=== PATIENT | male | born 1930 | race African-American/Black ===

== ENCOUNTER 2019-04-01 17:18 | Inpatient (IN) | payer MEDICARE, MEDICAID ==
[~2019-04-01] VITALS: Ht 152.4 cm; Wt 47.2 kg
[2019-04-01] VITALS: BP 166/79
[~2019-04-01 17:18] MED LIST: AMLO5TAB4 PO; ASPI-1079 PO; DOCU-138 PO; FLUT1DIS IH; LEVO750T21 PO; LISI-604 PO; MONT10TA21 PO; NIFE20CA PO; OMEP20TA2 PO; P50 PO; TIOT18CA3 IH; albuter; albuterol mdi IH
[2019-04-01] MEDS ORDERED: ALBUTEROL (0.083%) 2.5MG/3ML NEB HHN STA (17:24)
[2019-04-01] MEDS ORDERED: METHYLPREDNISOLONE SOD SUCC 125 MG/2 ML VIAL IV STA (17:24)
[2019-04-01] MEDS ORDERED: MAGNESIUM 2 G PREMIX 50 ML IV STA (17:24)
[2019-04-01] MEDS ORDERED: IPRATROPIUM BROMIDE (0.02%) 0.5MG/2.5ML NEB HHN STA (17:24)
[2019-04-01 18:03] LABS: CHLORIDE 105 mEq/L (98-107)
[2019-04-01 18:04] LABS: BASOPHILS % 1.1 % (0.0-2.0); EOSINOPHILS % 4.6 % (0.0-5.0); HEMATOCRIT. 35.8 % (42.0-52.0); HEMOGLOBIN. 11.4 g/dL (14.0-18.0); LYMPHOCYTES % 39.2 % (20.0-50.0); MEAN CORPUSCULAR HEMOGLOBIN 26.7 pg (28.0-32.0); MEAN PLATELET VOLUME 8.1 fl (7.4-10.4); MONOCYTES % 10.1 % (2.0-8.0); PLATELET 299 x1000/uL (130-400); RED BLOOD CELL COUNT 4.26 mill/uL (4.7-6.1); RED CELL DISTRIBUTION WIDTH 16.1 % (11.6-14.6)
[2019-04-01 18:28] LABS: BG BASE EXCESS -1.1 mmol/L (-2.0-2.0); BG BILEVEL POS AIRWAY PRESSURE 15/5; BG CARBOXYHEMOGLOBIN 0.2 % (0.5-1.5); BG DEOXYHEMOGLOBIN 0.7 % (0.0-5.0); BG FRACTION INSPIRED OXYGEN 60; BG HCO3 ACT 24.2 mmol/L (22.0-26.0); BG METHEMOGLOBIN 0.1 % (0.0-1.5); BG OXYGEN SATURATION 99.3 % (92.0-98.5); BG PCO2 42.7 mmHg (35.0-45.0); BG PH 7.371 (7.350-7.450); BG PO2 213.5 mmHg (75.0-100.0); BG SAMPLE SITE RIGHT BRACHIAL; BG TOTAL HEMOGLOBIN 11.8 g/dL (12.0-18.0); BG VENT MODE MASK - BIPAP; BG VENT RATE 18 set
[2019-04-01 22:00] VITALS: BP 180/70
[2019-04-02] VITALS (11 sets, daily range): BP systolic 116–161; BP diastolic 55–101
[2019-04-02] MEDS ORDERED: LORAZEPAM 2MG/ML CPJ IV PRN
[2019-04-02] MEDS ORDERED: HYDROMORPHONE HCL/PF 2MG/ML CPJ IV PRN
[2019-04-02] MEDS ORDERED: ONDANSETRON HCL 4MG/2ML INJ IV PRN
[2019-04-02] MEDS ORDERED: NA PHOS,M-B/NA PHOS,DI-BA ENEMA 118ML PR PRN
[2019-04-02] MEDS ORDERED: DIPHENHYDRAMINE 50MG/ML VIAL IV PRN
[2019-04-02] MEDS ORDERED: ACETAMINOPHEN 325MG TABLET PO PRN
[2019-04-02] MEDS ORDERED: DOCUSATE SODIUM 100MG CAPSULE PO PRN
[2019-04-02] MEDS ORDERED: HYDROCODONE/ACETAMINOPHEN 10/325MG TABLET PO PRN
[2019-04-02] MEDS ORDERED: DEXTROSE 50% WATER 50ML SYRINGE IV PRN
[2019-04-02] MEDS ORDERED: IPRATROPIUM/ALBUTEROL 0.5-3(2.5)MG/3ML NEB INH PRN
[2019-04-02] MEDS ORDERED: DIAZ2TAB MT (02:15)
[2019-04-02] MEDS: SODIUM CHLORIDE 0.9% INJ 3ML FLUSH IVF SCH ×3 (06:48→21:21)
[2019-04-02 07:08] LABS: BASOPHILS % 0.3 % (0.0-2.0); HEMATOCRIT. 33.2 % (42.0-52.0); HEMOGLOBIN. 10.8 g/dL (14.0-18.0); LYMPHOCYTES % 12.6 % (20.0-50.0); MEAN CORPUSCULAR HEMOGLOBIN 26.7 pg (28.0-32.0); MEAN PLATELET VOLUME 8.1 fl (7.4-10.4); MONOCYTES % 2.5 % (2.0-8.0); NEUTROPHILS % 84.6 % (40.0-76.0); PLATELET 297 x1000/uL (130-400); RED BLOOD CELL COUNT 4.04 mill/uL (4.7-6.1); RED CELL DISTRIBUTION WIDTH 16.4 % (11.6-14.6)
[2019-04-02 07:26] LABS: CHLORIDE 106 mEq/L (98-107)
[2019-04-02 07:37] LABS: LDL CHOLESTEROL 40 mg/dL (5-100)
[2019-04-02 07:39] LABS: CREATINE KINASE 154 IU/L (39-308); CREATINE KINASE MB FRACTION 2.3 ng/mL (0.5-3.6); HDL CHOLESTEROL 102 mg/dL (40-59); T4 FREE 1.14 ng/dL (0.76-1.46)
[2019-04-02] MEDS: BLOOD SUGAR DIAGNOSTIC STRIP TEST SCH ×4 (07:54→21:20)
[2019-04-02] MEDS: INSULIN LISPRO 100 UNITS/ML SUBCUT SCH ×4 (08:00→21:00)
[2019-04-02] MEDS: ASPIRIN 81MG EC TABLET PO SCH (08:00)
[2019-04-02] MEDS ORDERED: PNEUMOCOCCAL 23-VAL P-SAC VAC 0.5 ML IM ONE (08:00)
[2019-04-02] MEDS ORDERED: ENOXAPARIN 40MG/0.4ML SYR SUBCUT SCH (09:00)
[2019-04-02] MEDS: MAGNESIUM/ALUMINUM HYDROXIDE/SIMETHICONE 30ML UDC PO PRN (12:28)
[2019-04-02 14:08] LABS: CLARITY URINE CLEAR (CLEAR); COLOR URINE YELLOW (YELLOW); KETONES URINE TRACE (NEGATIVE); LEUKOCYTE ESTERASE URINE NEGATIVE (NEGATIVE); NITRITE URINE NEGATIVE (NEGATIVE); OCCULT BLOOD URINE NEGATIVE (NEGATIVE); PH URINE 5.5 (4.5-8.0); PROTEIN URINE TRACE (NEGATIVE); SPECIFIC GRAVITY URINE 1.017 (1.005-1.030); UROBILINOGEN URINE 0.2 E.U./dL (0.2-1.0)
[2019-04-02] MEDS: CLONIDINE 0.1MG TABLET PO PRN (16:00)
[2019-04-02 17:14] LABS: CREATINE KINASE 195 IU/L (39-308)
[2019-04-02 17:15] LABS: CREATINE KINASE MB FRACTION 2.7 ng/mL (0.5-3.6)
[2019-04-02] MEDS: BUDESONIDE 0.5MG/2ML NEB HHN SCH (19:50)
[2019-04-02] MEDS: METHYLPREDNISOLONE SOD SUCC 40 MG/ML VIAL IV SCH (20:26)
[2019-04-02] MEDS: IPRATROPIUM/ALBUTEROL 0.5-3(2.5)MG/3ML NEB HHN PRN (21:23)
[2019-04-03] VITALS (11 sets, daily range): BP systolic 99–149; BP diastolic 54–85
[2019-04-03] MEDS: METHYLPREDNISOLONE SOD SUCC 40 MG/ML VIAL IV SCH ×3 (03:00→22:50)
[2019-04-03] MEDS: SODIUM CHLORIDE 0.9% INJ 3ML FLUSH IVF SCH ×3 (06:00→22:50)
[2019-04-03] MEDS: BLOOD SUGAR DIAGNOSTIC STRIP TEST SCH ×3 (07:30→17:21)
[2019-04-03] MEDS: INSULIN LISPRO 100 UNITS/ML SUBCUT SCH ×3 (07:53→17:22)
[2019-04-03] MEDS: ENOXAPARIN 30MG/0.3ML SYR SUBCUT SCH (08:45)
[2019-04-03] MEDS: ASPIRIN 81MG EC TABLET PO SCH (08:45)
[2019-04-03 09:31] LABS: BASOPHILS % 0.2 % (0.0-2.0); HEMATOCRIT. 33.5 % (42.0-52.0); HEMOGLOBIN. 10.7 g/dL (14.0-18.0); LYMPHOCYTES % 14.3 % (20.0-50.0); MEAN CORPUSCULAR HEMOGLOBIN 26.2 pg (28.0-32.0); MEAN PLATELET VOLUME 7.5 fl (7.4-10.4); MONOCYTES % 6.3 % (2.0-8.0); NEUTROPHILS % 79.2 % (40.0-76.0); PLATELET 293 x1000/uL (130-400); RED BLOOD CELL COUNT 4.09 mill/uL (4.7-6.1); RED CELL DISTRIBUTION WIDTH 16.2 % (11.6-14.6)
[2019-04-03] MEDS: IPRATROPIUM/ALBUTEROL 0.5-3(2.5)MG/3ML NEB HHN PRN ×2 (09:40→21:12)
[2019-04-03] MEDS: BUDESONIDE 0.5MG/2ML NEB HHN SCH ×2 (09:40→21:23)
[2019-04-03 09:52] LABS: CHLORIDE 106 mEq/L (98-107)
[2019-04-03] MEDS: CLONIDINE 0.1MG TABLET PO PRN (11:25)
[2019-04-03] MEDS: MAGNESIUM/ALUMINUM HYDROXIDE/SIMETHICONE 30ML UDC PO PRN (17:21)
[2019-04-03] MEDS ORDERED: LISI40TA4 MT (18:36)
[2019-04-03] MEDS ORDERED: NIFE90TA34 MT (18:36)
[2019-04-04] VITALS (11 sets, daily range): BP systolic 121–159; BP diastolic 52–83
[2019-04-04 06:09] LABS: HEMATOCRIT. 33.3 % (42.0-52.0); HEMOGLOBIN. 10.7 g/dL (14.0-18.0); LYMPHOCYTES % 9.6 % (20.0-50.0); MEAN CORPUSCULAR HEMOGLOBIN 26.6 pg (28.0-32.0); MEAN CORPUSCULAR VOLUME 83.1 fL (80.0-94.0); MEAN PLATELET VOLUME 8.3 fl (7.4-10.4); MONOCYTES % 3.4 % (2.0-8.0); PLATELET 284 x1000/uL (130-400); RED BLOOD CELL COUNT 4.01 mill/uL (4.7-6.1); RED CELL DISTRIBUTION WIDTH 16.3 % (11.6-14.6)
[2019-04-04 06:16] LABS: CHLORIDE 105 mEq/L (98-107)
[2019-04-04] MEDS: SODIUM CHLORIDE 0.9% INJ 3ML FLUSH IVF SCH ×2 (06:17→13:11)
[2019-04-04] MEDS: BUDESONIDE 0.5MG/2ML NEB HHN SCH ×2 (08:15→21:02)
[2019-04-04] MEDS: IPRATROPIUM/ALBUTEROL 0.5-3(2.5)MG/3ML NEB HHN PRN ×3 (08:15→21:03)
[2019-04-04] MEDS: ASPIRIN 81MG EC TABLET PO SCH (09:15)
[2019-04-04] MEDS: ENOXAPARIN 30MG/0.3ML SYR SUBCUT SCH (09:16)
[2019-04-04] MEDS: GUAIFENESIN 200MG/10ML SUGAR FREE UDC PO PRN ×2 (09:16→16:26)
[2019-04-04] MEDS: METHYLPREDNISOLONE SOD SUCC 40 MG/ML VIAL IV SCH (10:52)
[2019-04-04] MEDS: MAGNESIUM/ALUMINUM HYDROXIDE/SIMETHICONE 30ML UDC PO PRN (16:11)
[2019-04-05] VITALS (17 sets, daily range): BP systolic 123–176; BP diastolic 60–99
[2019-04-05] MEDS: METHYLPREDNISOLONE SOD SUCC 40 MG/ML VIAL IV SCH ×2 (00:07→11:01)
[2019-04-05] MEDS: SODIUM CHLORIDE 0.9% INJ 3ML FLUSH IVF SCH ×3 (00:07→13:00)
[2019-04-05] MEDS: IPRATROPIUM/ALBUTEROL 0.5-3(2.5)MG/3ML NEB HHN PRN ×3 (00:30→09:30)
[2019-04-05] MEDS: HYDRALAZINE 20MG/ML VIAL IV PRN ×2 (06:04→15:13)
[2019-04-05] MEDS: BUDESONIDE 0.5MG/2ML NEB HHN SCH (09:30)
[2019-04-05] MEDS: ENOXAPARIN 30MG/0.3ML SYR SUBCUT SCH (09:34)
[2019-04-05] MEDS: ASPIRIN 81MG EC TABLET PO SCH (09:34)
[2019-04-05] MEDS: GUAIFENESIN 200MG/10ML SUGAR FREE UDC PO PRN (11:10)
[2019-04-05] MEDS: MAGNESIUM/ALUMINUM HYDROXIDE/SIMETHICONE 30ML UDC PO PRN (15:16)
== END 2019-04-05 15:40 | disposition home or self-care (01) | DRG 189 ==
LOC: ER 17:32 → 5EST 18:28 → ENRESERV 21:08
PROVIDERS: ADMIT Internal Medicine; ATTEND Internal Medicine
PROC: 5A09357 Assistance with Respiratory Ventilation, Less than 24 Consecutive Hours, Continuous Positive Airway Pressure (ICD-10-PCS; principal; 2019-04-01)
DX: J96.01 Acute respiratory failure with hypoxia (principal); E46 Unspecified protein-calorie malnutrition; E87.2 Acidosis; I10 Essential (primary) hypertension; J43.9 Emphysema, unspecified; E11.649 Type 2 diabetes mellitus with hypoglycemia without coma; R47.02 Dysphasia; Z53.20 Procedure and treatment not carried out because of patient's decision for unspecified reasons; Z92.3 Personal history of irradiation; Z85.46 Personal history of malignant neoplasm of prostate; Z99.81 Dependence on supplemental oxygen; Z68.20 Body mass index [BMI] 20.0-20.9, adult; Z88.0 Allergy status to penicillin; Z79.899 Other long term (current) drug therapy; Z79.82 Long term (current) use of aspirin
CPT/HCPCS: 36415; 36600; 71045; 71250; 80048; 80061; 82375; 82550; 82553; 82805; 82962; 83605; 83880; 84145; 84439; 84443; 84484; 90732; 92610; 93005; 94640; 94644; 94660; 96365; 96375; 97162; 97166; 99291; J0360; J1650; J2060; J2920; J2930; J3475; J7611; J7620; J7626

== ENCOUNTER 2019-05-03 15:28 | Inpatient (IN) | payer MEDICARE, MEDICAID ==
[~2019-05-03] VITALS: Ht 167.6 cm; Wt 47.2 kg
[~2019-05-03 15:28] MED LIST changes: -AMLO5TAB4 PO; +DIAZ2TAB MT; -LEVO750T21 PO; -LISI-604 PO; +LISI40TA4 MT; -NIFE20CA PO; +NIFE90TA34 MT; -P50 PO
[2019-05-03] MEDS ORDERED: ALBUTEROL (0.083%) 2.5MG/3ML NEB HHN STA (15:33)
[2019-05-03] MEDS ORDERED: ONDANSETRON HCL 4MG/2ML INJ IV STA (15:33)
[2019-05-03] MEDS ORDERED: METHYLPREDNISOLONE SOD SUCC 125 MG/2 ML VIAL IV STA (15:33)
[2019-05-03] MEDS ORDERED: IPRATROPIUM BROMIDE (0.02%) 0.5MG/2.5ML NEB HHN STA (15:33)
[2019-05-03] MEDS ORDERED: MAGNESIUM 2 G PREMIX 50 ML IV ONE (15:45)
[2019-05-03 16:07] LABS: BASOPHILS % 0.8 % (0.0-2.0); EOSINOPHILS % 3.2 % (0.0-5.0); HEMATOCRIT. 38.7 % (42.0-52.0); HEMOGLOBIN. 12.4 g/dL (14.0-18.0); LYMPHOCYTES % 42.8 % (20.0-50.0); MEAN CORPUSCULAR HEMOGLOBIN 26.9 pg (28.0-32.0); MEAN CORPUSCULAR VOLUME 84.1 fL (80.0-94.0); MONOCYTES % 9.1 % (2.0-8.0); NEUTROPHILS % 44.1 % (40.0-76.0); PLATELET 284 x1000/uL (130-400); RED CELL DISTRIBUTION WIDTH 18.5 % (11.6-14.6)
[2019-05-03 16:08] LABS: CHLORIDE 109 mEq/L (98-107)
[2019-05-03 16:09] LABS: BG BASE EXCESS 0.6 mmol/L (-2.0-2.0); BG BILEVEL POS AIRWAY PRESSURE ST=15/5; BG CARBOXYHEMOGLOBIN 0.3 % (0.5-1.5); BG DEOXYHEMOGLOBIN 0.9 % (0.0-5.0); BG FRACTION INSPIRED OXYGEN 50; BG HCO3 ACT 25.8 mmol/L (22.0-26.0); BG METHEMOGLOBIN 0.2 % (0.0-1.5); BG OXYGEN SATURATION 99.1 % (92.0-98.5); BG OXYHEMOGLOBIN 98.6 % (94.0-97.0); BG PCO2 43.8 mmHg (35.0-45.0); BG PH 7.388 (7.350-7.450); BG PO2 180.5 mmHg (75.0-100.0); BG SAMPLE SITE LEFT BRACHIAL; BG TOTAL HEMOGLOBIN 11.7 g/dL (12.0-18.0); BG VENT MODE MASK - BIPAP; BG VENT RATE 16 set
[2019-05-03 21:45] VITALS: BP 179/57
[2019-05-03 21:52] VITALS: BP 179/57
[2019-05-03] MEDS ORDERED: ONDANSETRON HCL 4MG/2ML INJ IV PRN (23:30)
[2019-05-03] MEDS ORDERED: CLONIDINE 0.1MG TABLET PO PRN (23:30)
[2019-05-03] MEDS ORDERED: IPRATROPIUM/ALBUTEROL 0.5-3(2.5)MG/3ML NEB INH PRN (23:30)
[2019-05-03] MEDS ORDERED: HYDROCODONE/ACETAMINOPHEN 5/325MG TABLET PO PRN (23:30)
[2019-05-03] MEDS ORDERED: DOCUSATE SODIUM 100MG CAPSULE PO PRN (23:30)
[2019-05-03] MEDS ORDERED: ACETAMINOPHEN 325MG TABLET PO PRN (23:30)
[2019-05-03] MEDS ORDERED: MORPHINE SULFATE 2 MG/ML CPJ (NOT FOR IM USE) IV PRN (23:30)
[2019-05-04] VITALS: BP 173/66
[2019-05-04] MEDS ORDERED: POTASSIUM CHLORIDE 20MEQ TABLET SR PO NR
[2019-05-04] MEDS ORDERED: AMLODIPINE 10MG TABLET PO SCH
[2019-05-04] MEDS: METHYLPREDNISOLONE SOD SUCC 125 MG/2 ML VIAL IV SCH ×4 (00:37→17:16)
[2019-05-04] MEDS: ENOXAPARIN 30MG/0.3ML SYR SUBCUT SCH ×2 (00:38→21:15)
[2019-05-04] MEDS ORDERED: LEVOFLOXACIN 500MG PREMIX 100 ML IV NR (01:00)
[2019-05-04] MEDS: IPRATROPIUM/ALBUTEROL 0.5-3(2.5)MG/3ML NEB INH SCH ×4 (03:11→20:05)
[2019-05-04 04:00] VITALS: BP 144/54
[2019-05-04] MEDS ORDERED: ALBU6.7H INH (04:20)
[2019-05-04] MEDS ORDERED: PRO1 PO (04:20)
[2019-05-04 06:40] LABS: BASOPHILS % 0.2 % (0.0-2.0); HEMATOCRIT. 33.1 % (42.0-52.0); HEMOGLOBIN. 10.8 g/dL (14.0-18.0); LYMPHOCYTES % 9.9 % (20.0-50.0); MEAN CORPUSCULAR HEMOGLOBIN 27.3 pg (28.0-32.0); MEAN CORPUSCULAR VOLUME 83.7 fL (80.0-94.0); MEAN PLATELET VOLUME 8.5 fl (7.4-10.4); MONOCYTES % 1.6 % (2.0-8.0); NEUTROPHILS % 88.3 % (40.0-76.0); PLATELET 243 x1000/uL (130-400); RED BLOOD CELL COUNT 3.95 mill/uL (4.7-6.1); RED CELL DISTRIBUTION WIDTH 18.2 % (11.6-14.6)
[2019-05-04 07:00] LABS: CHLORIDE 110 mEq/L (98-107)
[2019-05-04 08:00] VITALS: BP 147/64
[2019-05-04] MEDS: ASPIRIN 81MG EC TABLET PO SCH (08:52)
[2019-05-04 09:22] LABS: BG BASE EXCESS -3.7 mmol/L (-2.0-2.0); BG CARBOXYHEMOGLOBIN 0.1 % (0.5-1.5); BG FRACTION INSPIRED OXYGEN 21; BG HCO3 ACT 20.5 mmol/L (22.0-26.0); BG METHEMOGLOBIN 0.2 % (0.0-1.5); BG OXYHEMOGLOBIN 88.7 % (94.0-97.0); BG PH 7.398 (7.350-7.450); BG SAMPLE SITE RIGHT BRACHIAL; BG TOTAL HEMOGLOBIN 11.5 g/dL (12.0-18.0); BG VENT MODE ROOM AIR
[2019-05-04 12:00] VITALS: BP 130/60
[2019-05-04] MEDS: AMLODIPINE 10MG TABLET PO SCH (13:28)
[2019-05-04 16:00] VITALS: BP 143/52
[2019-05-04] MEDS: GUAIFENESIN 200MG/10ML SUGAR FREE UDC PO PRN (16:39)
[2019-05-04 17:55] LABS: *AMPHETAMINES SCREEN URINE NEGATIVE (NEGATIVE)
[2019-05-04 17:57] LABS: *BARBITURATES SCREEN URINE NEGATIVE (NEGATIVE); *BENZODIAZEPINES SCREEN URINE NEGATIVE (NEGATIVE); *COCAINE SCREEN URINE NEGATIVE (NEGATIVE); CANNABINOID URINE SCREEN NEGATIVE (NEGATIVE); METHADONE URINE SCREEN NEGATIVE (NEGATIVE); OPIATES URINE SCREEN PRESUMTIVE POSITIVE (NEGATIVE); PHENCYCLIDINE URINE SCREEN NEGATIVE (NEGATIVE)
[2019-05-04 20:00] VITALS: BP 136/53
[2019-05-04] MEDS: LEVOFLOXACIN 250MG PREMIX 50 ML IV SCH (22:04)
[2019-05-05] VITALS (7 sets, daily range): BP systolic 122–144; BP diastolic 50–64
[2019-05-05] MEDS: IPRATROPIUM/ALBUTEROL 0.5-3(2.5)MG/3ML NEB INH SCH ×2 (02:03→10:17)
[2019-05-05] MEDS: METHYLPREDNISOLONE SOD SUCC 125 MG/2 ML VIAL IV SCH ×3 (03:30→12:59)
[2019-05-05] MEDS: IPRATROPIUM/ALBUTEROL 0.5-3(2.5)MG/3ML NEB HHN SCH ×2 (08:33→21:01)
[2019-05-05] MEDS: AMLODIPINE 10MG TABLET PO SCH (09:00)
[2019-05-05] MEDS: ASPIRIN 81MG EC TABLET PO SCH (09:24)
[2019-05-05] MEDS: GUAIFENESIN 200MG/10ML SUGAR FREE UDC PO PRN (09:24)
[2019-05-05] MEDS: METHYLPREDNISOLONE SOD SUCC 40 MG/ML VIAL IV SCH (21:50)
[2019-05-05] MEDS: ENOXAPARIN 30MG/0.3ML SYR SUBCUT SCH (21:51)
[2019-05-05] MEDS: LEVOFLOXACIN 250MG PREMIX 50 ML IV SCH (23:38)
[2019-05-06] VITALS: BP 135/53
[2019-05-06] MEDS: MAGNESIUM/ALUMINUM HYDROXIDE/SIMETHICONE 30ML UDC PO PRN ×3 (00:54→19:13)
[2019-05-06] MEDS: IPRATROPIUM/ALBUTEROL 0.5-3(2.5)MG/3ML NEB HHN SCH ×6 (01:04→21:11)
[2019-05-06] MEDS: ACETYLCYSTEINE 100MG/ML 10% VIAL 4ML INH SCH ×4 (01:04→22:00)
[2019-05-06 04:00] VITALS: BP 140/53
[2019-05-06 08:00] VITALS: BP 137/50
[2019-05-06] MEDS: ASPIRIN 81MG EC TABLET PO SCH (09:19)
[2019-05-06] MEDS: AMLODIPINE 10MG TABLET PO SCH (09:19)
[2019-05-06] MEDS: METHYLPREDNISOLONE SOD SUCC 40 MG/ML VIAL IV SCH (09:19)
[2019-05-06 12:00] VITALS: BP 124/59
[2019-05-06 16:00] VITALS: BP 131/53
[2019-05-06 20:00] VITALS: BP 135/61
[2019-05-06] MEDS: LEVOFLOXACIN 250MG TABLET PO SCH (21:53)
[2019-05-06] MEDS: ENOXAPARIN 30MG/0.3ML SYR SUBCUT SCH (21:53)
[2019-05-07] VITALS: BP 134/60
[2019-05-07] MEDS: IPRATROPIUM/ALBUTEROL 0.5-3(2.5)MG/3ML NEB HHN SCH ×6 (00:51→21:06)
[2019-05-07] MEDS: MAGNESIUM/ALUMINUM HYDROXIDE/SIMETHICONE 30ML UDC PO PRN ×2 (01:21→20:14)
[2019-05-07 04:00] VITALS: BP 132/51
[2019-05-07 08:00] VITALS: BP 145/58
[2019-05-07] MEDS: ASPIRIN 81MG EC TABLET PO SCH (08:53)
[2019-05-07] MEDS: METHYLPREDNISOLONE SOD SUCC 40 MG/ML VIAL IV SCH (08:53)
[2019-05-07] MEDS: AMLODIPINE 10MG TABLET PO SCH (08:54)
[2019-05-07 12:00] VITALS: BP 119/52
[2019-05-07 16:00] VITALS: BP 139/66
[2019-05-07 20:00] VITALS: BP 130/56
[2019-05-07] MEDS: ENOXAPARIN 30MG/0.3ML SYR SUBCUT SCH (20:14)
[2019-05-07] MEDS: LEVOFLOXACIN 250MG TABLET PO SCH (20:14)
[2019-05-08] VITALS: BP 127/61
[2019-05-08] MEDS: ACETYLCYSTEINE 100MG/ML 10% VIAL 4ML INH SCH (02:35)
[2019-05-08] MEDS: IPRATROPIUM/ALBUTEROL 0.5-3(2.5)MG/3ML NEB HHN SCH ×6 (02:35→20:10)
[2019-05-08 04:00] VITALS: BP 131/60
[2019-05-08 08:00] VITALS: BP 138/62
[2019-05-08] MEDS: ASPIRIN 81MG EC TABLET PO SCH (09:17)
[2019-05-08] MEDS: AMLODIPINE 10MG TABLET PO SCH (09:18)
[2019-05-08] MEDS: METHYLPREDNISOLONE SOD SUCC 40 MG/ML VIAL IV SCH (09:18)
[2019-05-08 12:00] VITALS: BP 118/49
[2019-05-08 16:00] VITALS: BP 143/62
[2019-05-08 20:00] VITALS: BP 149/67
[2019-05-08] MEDS: GUAIFENESIN 200MG/10ML SUGAR FREE UDC PO PRN (22:16)
[2019-05-08] MEDS: ENOXAPARIN 30MG/0.3ML SYR SUBCUT SCH (22:16)
[2019-05-08] MEDS: LEVOFLOXACIN 250MG TABLET PO SCH (22:16)
[2019-05-08] MEDS: MAGNESIUM/ALUMINUM HYDROXIDE/SIMETHICONE 30ML UDC PO PRN (22:23)
[2019-05-09] VITALS: BP 135/55
[2019-05-09] MEDS: ACETYLCYSTEINE 100MG/ML 10% VIAL 4ML INH SCH (00:50)
[2019-05-09] MEDS: IPRATROPIUM/ALBUTEROL 0.5-3(2.5)MG/3ML NEB HHN SCH ×5 (00:56→19:56)
[2019-05-09 04:00] VITALS: BP 126/54
[2019-05-09 07:13] LABS: CHLORIDE 103 mEq/L (98-107)
[2019-05-09 07:14] LABS: HEMATOCRIT 32.9 % (42.0-52.0); HEMOGLOBIN 10.5 g/dL (14.0-18.0); MEAN CORPUSCULAR HEMOGLOBIN 26.6 pg (28.0-32.0); MEAN CORPUSCULAR VOLUME 83.6 fL (80.0-94.0); PLATELET 260 x1000/uL (130-400); RED BLOOD CELL COUNT 3.93 mill/uL (4.7-6.1); RED CELL DISTRIBUTION WIDTH 18.5 % (11.6-14.6)
[2019-05-09 08:00] VITALS: BP 140/67
[2019-05-09] MEDS: AMLODIPINE 10MG TABLET PO SCH (10:01)
[2019-05-09] MEDS: ASPIRIN 81MG EC TABLET PO SCH (10:01)
[2019-05-09] MEDS: PREDNISONE 20MG TABLET PO SCH (10:01)
[2019-05-09 12:00] VITALS: BP 128/47
[2019-05-09] MEDS ORDERED: PRED10TA23 MT (16:16)
[2019-05-09] MEDS ORDERED: ALBU18HF2 IH (16:18)
[2019-05-09 16:20] VITALS: BP 136/49
[2019-05-09 20:00] VITALS: BP 117/52
[2019-05-09] MEDS: LEVOFLOXACIN 250MG TABLET PO SCH (20:59)
[2019-05-09] MEDS: ENOXAPARIN 30MG/0.3ML SYR SUBCUT SCH (21:00)
[2019-05-10] VITALS: BP 98/54
[2019-05-10] MEDS: ACETYLCYSTEINE 100MG/ML 10% VIAL 4ML INH SCH (00:20)
[2019-05-10] MEDS: IPRATROPIUM/ALBUTEROL 0.5-3(2.5)MG/3ML NEB HHN SCH ×3 (00:20→09:18)
[2019-05-10 04:00] VITALS: BP 122/53
[2019-05-10 07:56] VITALS: BP 138/63
[2019-05-10] MEDS: AMLODIPINE 10MG TABLET PO SCH (09:14)
[2019-05-10] MEDS: PREDNISONE 20MG TABLET PO SCH (09:14)
[2019-05-10] MEDS: ASPIRIN 81MG EC TABLET PO SCH (09:14)
[2019-05-10 11:32] VITALS: BP 128/53
== END 2019-05-10 12:05 | disposition home health service (06) | DRG 193 ==
LOC: ER 15:28 → 5WST 16:29 → EDBEDREQ 16:33 → ENRESERV 21:00
PROVIDERS: ADMIT Hospitalist; ATTEND Hospitalist
PROC: 5A09357 Assistance with Respiratory Ventilation, Less than 24 Consecutive Hours, Continuous Positive Airway Pressure (ICD-10-PCS; principal; 2019-05-03)
DX: J18.9 Pneumonia, unspecified organism (principal); J96.01 Acute respiratory failure with hypoxia; J44.1 Chronic obstructive pulmonary disease with (acute) exacerbation; J44.0 Chronic obstructive pulmonary disease with (acute) lower respiratory infection; E11.9 Type 2 diabetes mellitus without complications; F03.90 Unspecified dementia, unspecified severity, without behavioral disturbance, psychotic disturbance, mood disturbance, and anxiety; C61 Malignant neoplasm of prostate; F14.10 Cocaine abuse, uncomplicated; F17.200 Nicotine dependence, unspecified, uncomplicated; I10 Essential (primary) hypertension; K21.9 Gastro-esophageal reflux disease without esophagitis; M51.36 Other intervertebral disc degeneration, lumbar region; Z86.73 Personal history of transient ischemic attack (TIA), and cerebral infarction without residual deficits; Z99.81 Dependence on supplemental oxygen; Z88.0 Allergy status to penicillin
CPT/HCPCS: 36415; 36600; 71045; 80048; 80305; 82375; 82805; 83605; 83880; 84484; 85027; 93005; 93970; 94640; 94644; 94660; 96365; 97161; 97165; 99285; J1650; J1956; J2405; J2920; J2930; J3475; J7512; J7608; J7611; J7620

== ENCOUNTER 2020-06-27 13:09 | Emergency (ER) | payer MEDICARE, MEDICAID ==
[~2020-06-27] VITALS: Ht 170.2 cm; Wt 50.0 kg
[~2020-06-27 13:09] MED LIST changes: +ALBU18HF2 IH; +ALBU6.7H11 INH; -ASPI-1079 PO; -DOCU-138 PO; -FLUT1DIS IH; -LISI40TA4 MT; -MONT10TA21 PO; -NIFE90TA34 MT; -OMEP20TA2 PO; +PRED10TA23 MT; +PRO1 PO; -TIOT18CA3 IH; -albuter; -albuterol mdi IH
[2020-06-28 00:19] LABS: BASOPHILS % 0.8 % (0.0-2.0); EOSINOPHILS % 3.8 % (0.0-5.0); HEMATOCRIT. 35.5 % (42.0-52.0); HEMOGLOBIN. 11.1 g/dL (14.0-18.0); LYMPHOCYTES % 19.4 % (20.0-50.0); MEAN CORPUSCULAR HEMOGLOBIN 27.4 pg (28.0-32.0); MEAN CORPUSCULAR VOLUME 88.2 fL (80.0-94.0); MEAN PLATELET VOLUME 7.6 fl (7.4-10.4); MONOCYTES % 8.6 % (2.0-8.0); NEUTROPHILS % 67.4 % (40.0-76.0); PLATELET 366 x1000/uL (130-400); RED BLOOD CELL COUNT 4.03 mill/uL (4.7-6.1); RED CELL DISTRIBUTION WIDTH 15.6 % (11.6-14.6)
[2020-06-28 00:26] LABS: CHLORIDE 106 mEq/L (98-107)
[2020-06-28 01:04] VITALS: BP 122/83
== END 2020-06-28 01:09 | disposition left against medical advice (07) ==
LOC: ER 13:09 → EDBEDREQTM 15:29 → EDBEDREQ 15:29 → CANRESERV 19:43 → ENRESERV 19:43 → CANBEDREQ 06-28 00:14 → ER 06-28 01:09
DX: J44.9 Chronic obstructive pulmonary disease, unspecified (principal); R55 Syncope and collapse; E11.9 Type 2 diabetes mellitus without complications; I10 Essential (primary) hypertension; Z79.899 Other long term (current) drug therapy; Z88.0 Allergy status to penicillin
CPT/HCPCS: 36415; 71045; 71250; 72170; 80053; 83880; 84484; 85025; 93005; 99285

== ENCOUNTER 2020-08-05 13:07 | Inpatient (IN) | payer MEDICARE, MEDICAID ==
[~2020-08-05] VITALS: Ht 165.1 cm; Wt 47.6 kg
[2020-08-05] MEDS ORDERED: LEVOFLOXACIN 750MG PREMIX 150 ML IV ONE (14:30)
[2020-08-05] MEDS ORDERED: VANCOMYCIN 1 G PREMIX 200 ML IV SCH (14:30)
[2020-08-05] MEDS ORDERED: SODIUM BICARBONATE 4% (2.4MEQ) 5ML VIAL IV ONE (14:41)
[2020-08-05] MEDS ORDERED: LIDOCAINE HCL 1% 20ML VIAL (Pyxis) INJ ONE (14:41)
[2020-08-05 15:03] LABS: BG BASE EXCESS 0.8 mmol/L (-2.0-2.0); BG CARBOXYHEMOGLOBIN 0.3 % (0.5-1.5); BG DEOXYHEMOGLOBIN 3.8 % (0.0-5.0); BG FRACTION INSPIRED OXYGEN 21; BG HCO3 ACT 24.8 mmol/L (22.0-26.0); BG METHEMOGLOBIN 0.3 % (0.0-1.5); BG OXYGEN SATURATION 96.2 % (92.0-98.5); BG OXYHEMOGLOBIN 95.6 % (94.0-97.0); BG PCO2 37.1 mmHg (35.0-45.0); BG PH 7.443 (7.350-7.450); BG PO2 85.4 mmHg (75.0-100.0); BG SAMPLE SITE RIGHT BRACHIAL; BG TOTAL HEMOGLOBIN 10.2 g/dL (12.0-18.0); BG VENT MODE ROOM AIR
[2020-08-05 15:08] LABS: HEMATOCRIT. 33.2 % (42.0-52.0); HEMOGLOBIN. 10.6 g/dL (14.0-18.0); MEAN CORPUSCULAR HEMOGLOBIN 27.7 pg (28.0-32.0); MEAN CORPUSCULAR VOLUME 87.1 fL (80.0-94.0); MEAN PLATELET VOLUME 8.9 fl (7.4-10.4); PLATELET 259 x1000/uL (130-400); RED BLOOD CELL COUNT 3.81 mill/uL (4.7-6.1); RED CELL DISTRIBUTION WIDTH 16.5 % (11.6-14.6)
[2020-08-05 15:13] LABS: CHLORIDE 104 mEq/L (98-107)
[2020-08-05 15:19] LABS: ETHANOL BLOOD < 10 mg/dL
[2020-08-05 15:23] LABS: CREATINE KINASE 23 IU/L (39-308); PROTHROMBIN TIME 10.4 sec (9.6-11.0)
[2020-08-05 15:30] LABS: CLARITY URINE CLOUDY (CLEAR); COLOR URINE YELLOW (YELLOW); KETONES URINE TRACE (NEGATIVE); LEUKOCYTE ESTERASE URINE 2+ (NEGATIVE); NITRITE URINE NEGATIVE (NEGATIVE); OCCULT BLOOD URINE 2+ (NEGATIVE); PROTEIN URINE NEGATIVE (NEGATIVE); SPECIFIC GRAVITY URINE 1.016 (1.005-1.030); UROBILINOGEN URINE 0.2 E.U./dL (0.2-1.0)
[2020-08-05 15:53] LABS: PLATELET ESTIMATE NORMAL
[2020-08-05 16:12] LABS: *AMPHETAMINES SCREEN URINE NEGATIVE (NEGATIVE); *BARBITURATES SCREEN URINE NEGATIVE (NEGATIVE); *BENZODIAZEPINES SCREEN URINE PRESUMTIVE POSITIVE (NEGATIVE); *COCAINE SCREEN URINE NEGATIVE (NEGATIVE); METHADONE URINE SCREEN NEGATIVE (NEGATIVE)
[2020-08-05 16:13] LABS: CANNABINOID URINE SCREEN NEGATIVE (NEGATIVE); OPIATES URINE SCREEN PRESUMTIVE POSITIVE (NEGATIVE); PHENCYCLIDINE URINE SCREEN NEGATIVE (NEGATIVE)
[2020-08-05] MEDS ORDERED: METHYLPREDNISOLONE SOD SUCC 125 MG/2 ML VIAL IV ONE (16:15)
[2020-08-05] MEDS ORDERED: ASPIRIN 81MG TABLET PO ONE (16:15)
[2020-08-05] MEDS ORDERED: ALBUTEROL 6.7GM HFA INHALER ORI ONE ×3 (16:15)
[2020-08-05] MEDS ORDERED: METRONIDAZOLE 500 MG PREMIX 100 ML IV ONE (17:30)
[2020-08-05] MEDS ORDERED: IPRATROPIUM/ALBUTEROL 0.5-3(2.5)MG/3ML NEB HHN PRN (18:30)
[2020-08-05] MEDS ORDERED: DIPHENHYDRAMINE 50MG/ML VIAL IV PRN (18:30)
[2020-08-05] MEDS ORDERED: ACETAMINOPHEN 325MG TABLET PO PRN (18:30)
[2020-08-05] MEDS ORDERED: MORPHINE SULFATE 2 MG/ML CPJ (NOT FOR IM USE) IV PRN (18:30)
[2020-08-05] MEDS ORDERED: ONDANSETRON HCL 4MG/2ML INJ IV PRN (18:30)
[2020-08-05] MEDS: SODIUM CHLORIDE 0.9% 1,000 ML IV SCH (18:43)
[2020-08-05 21:50] VITALS: BP 168/86
[2020-08-05] MEDS ORDERED: METRONIDAZOLE 500 MG PREMIX 100 ML IV SCH (22:00)
[2020-08-05] MEDS: CLONIDINE 0.1MG TABLET PO PRN (23:17)
[2020-08-06] VITALS: BP 167/78
[2020-08-06 00:06] LABS: CREATINE KINASE 24 IU/L (39-308)
[2020-08-06 00:07] LABS: CREATINE KINASE MB FRACTION 1.5 ng/mL (0.5-3.6)
[2020-08-06] MEDS ORDERED: DEXTROSE 50% WATER 50ML SYRINGE IV PRN (00:45)
[2020-08-06 04:00] VITALS: BP 127/24
[2020-08-06] MEDS: BLOOD SUGAR DIAGNOSTIC STRIP TEST SCH ×4 (06:02→21:18)
[2020-08-06] MEDS: INSULIN LISPRO 100 UNITS/ML SUBCUT SCH ×4 (06:02→21:00)
[2020-08-06 06:25] LABS: HEMATOCRIT. 26.6 % (42.0-52.0); HEMOGLOBIN. 8.7 g/dL (14.0-18.0); MEAN CORPUSCULAR HEMOGLOBIN 27.8 pg (28.0-32.0); MEAN CORPUSCULAR VOLUME 85.5 fL (80.0-94.0); PLATELET 258 x1000/uL (130-400); RED BLOOD CELL COUNT 3.11 mill/uL (4.7-6.1); RED CELL DISTRIBUTION WIDTH 16.2 % (11.6-14.6)
[2020-08-06 06:38] LABS: CHLORIDE 107 mEq/L (98-107)
[2020-08-06 06:49] LABS: CREATINE KINASE 37 IU/L (39-308)
[2020-08-06 06:50] LABS: HDL CHOLESTEROL 79 mg/dL (40-59); LDL CHOLESTEROL 41 mg/dL (5-100)
[2020-08-06 06:54] LABS: CREATINE KINASE MB FRACTION 2.5 ng/mL (0.5-3.6)
[2020-08-06 08:00] VITALS: BP 128/68
[2020-08-06] MEDS: METRONIDAZOLE 500 MG PREMIX 100 ML IV SCH ×3 (08:45→23:36)
[2020-08-06] MEDS: ALBUTEROL 6.7GM HFA INHALER ORI PRN (09:40)
[2020-08-06 09:47] LABS: BG BASE EXCESS 0.7 mmol/L (-2.0-2.0); BG CARBOXYHEMOGLOBIN 0.1 % (0.5-1.5); BG DEOXYHEMOGLOBIN 1.2 % (0.0-5.0); BG HCO3 ACT 25.9 mmol/L (22.0-26.0); BG METHEMOGLOBIN 0.2 % (0.0-1.5); BG OXYGEN SATURATION 98.8 % (92.0-98.5); BG OXYHEMOGLOBIN 98.5 % (94.0-97.0); BG PCO2 44.2 mmHg (35.0-45.0); BG PH 7.386 (7.350-7.450); BG PO2 143.6 mmHg (75.0-100.0); BG SAMPLE SITE RIGHT BRACHIAL; BG TOTAL HEMOGLOBIN 9.4 g/dL (12.0-18.0); BG VENT MODE NASAL CANNULA
[2020-08-06 12:00] VITALS: BP 153/78
[2020-08-06] MEDS: LEVOFLOXACIN 250MG PREMIX 50 ML IV SCH (13:32)
[2020-08-06] MEDS: SODIUM CHLORIDE 0.9% 1,000 ML IV SCH (13:32)
[2020-08-06] MEDS: ENOXAPARIN 60MG/0.6ML SYR SUBCUT SCH ×2 (13:32→23:34)
[2020-08-06 13:51] LABS: PLATELET ESTIMATE NORMAL
[2020-08-06 16:00] VITALS: BP 158/89
[2020-08-06 20:00] VITALS: BP 141/67
[2020-08-07] VITALS: BP 179/96
[2020-08-07 04:00] VITALS: BP 141/88
[2020-08-07] MEDS: INSULIN LISPRO 100 UNITS/ML SUBCUT SCH ×4 (06:23→21:00)
[2020-08-07] MEDS: BLOOD SUGAR DIAGNOSTIC STRIP TEST SCH ×4 (06:23→21:00)
[2020-08-07 08:00] VITALS: BP_SYST 125; BP_SYST 169; BP_DIAS 40; BP_DIAS 62
[2020-08-07] MEDS ORDERED: LEVOFLOXACIN 500MG PREMIX 100 ML IV SCH (08:00)
[2020-08-07] MEDS: METRONIDAZOLE 500 MG PREMIX 100 ML IV SCH ×2 (08:54→17:02)
[2020-08-07] MEDS: ENOXAPARIN 60MG/0.6ML SYR SUBCUT SCH ×2 (08:55→21:00)
[2020-08-07] MEDS: SODIUM CHLORIDE 0.9% 1,000 ML IV SCH (10:39)
[2020-08-07] MEDS: LEVOFLOXACIN 250MG PREMIX 50 ML IV SCH (10:40)
[2020-08-07 12:00] VITALS: BP 126/58
[2020-08-07 16:00] VITALS: BP 160/79
[2020-08-07 21:15] VITALS: BP 146/66
[2020-08-08 00:05] VITALS: BP 172/69
[2020-08-08] MEDS: METRONIDAZOLE 500 MG PREMIX 100 ML IV SCH ×3 (00:16→16:33)
[2020-08-08] MEDS: CLONIDINE 0.1MG TABLET PO PRN (00:16)
[2020-08-08 04:58] VITALS: BP 121/49
[2020-08-08] MEDS: SODIUM CHLORIDE 0.9% 1,000 ML IV SCH (06:01)
[2020-08-08] MEDS: BLOOD SUGAR DIAGNOSTIC STRIP TEST SCH ×4 (06:08→21:40)
[2020-08-08] MEDS: INSULIN LISPRO 100 UNITS/ML SUBCUT SCH ×4 (06:08→21:42)
[2020-08-08 08:00] VITALS: BP 147/80
[2020-08-08] MEDS: LEVOFLOXACIN 250MG PREMIX 50 ML IV SCH (10:02)
[2020-08-08] MEDS: ENOXAPARIN 60MG/0.6ML SYR SUBCUT SCH ×2 (10:03→21:48)
[2020-08-08 11:18] LABS: CHLORIDE 111 mEq/L (98-107)
[2020-08-08 11:30] LABS: BASOPHILS % 0.1 % (0.0-2.0); HEMOGLOBIN. 8.6 g/dL (14.0-18.0); LYMPHOCYTES % 10.5 % (20.0-50.0); MEAN CORPUSCULAR VOLUME 87.4 fL (80.0-94.0); MEAN PLATELET VOLUME 7.9 fl (7.4-10.4); NEUTROPHILS % 78.4 % (40.0-76.0); PLATELET 310 x1000/uL (130-400); RED BLOOD CELL COUNT 3.09 mill/uL (4.7-6.1); RED CELL DISTRIBUTION WIDTH 16.1 % (11.6-14.6)
[2020-08-08 12:12] VITALS: BP 116/58
[2020-08-08] MEDS ORDERED: POTASSIUM CHLORIDE INJ 40 MEQ in DEXT 5% WATER 250 ML IV SCH (14:00)
[2020-08-08 15:01] LABS: PHOSPHORUS 0.8 mg/dL (2.5-4.9)
[2020-08-08 16:01] VITALS: BP 121/69
[2020-08-08] MEDS ORDERED: MAGNESIUM 2 G PREMIX 50 ML IV ONE (16:30)
[2020-08-08] MEDS ORDERED: MAGNESIUM 4 G PREMIX 100 ML IV NR (18:00)
[2020-08-08] MEDS ORDERED: POTASSIUM PHOS,M-BASIC-D-BASIC 30 MMOL in DEXT 5% WATER 500 ML IV NR (18:00)
[2020-08-08] MEDS: ALBUTEROL 6.7GM HFA INHALER ORI PRN (21:05)
[2020-08-08 21:10] VITALS: BP 126/69
[2020-08-09] VITALS: BP 124/54
[2020-08-09] MEDS: METRONIDAZOLE 500 MG PREMIX 100 ML IV SCH ×3 (00:43→15:54)
[2020-08-09] MEDS: SODIUM CHLORIDE 0.9% 1,000 ML IV SCH ×2 (02:30→23:41)
[2020-08-09 04:00] VITALS: BP 140/69
[2020-08-09] MEDS: BLOOD SUGAR DIAGNOSTIC STRIP TEST SCH ×4 (05:48→22:13)
[2020-08-09] MEDS: INSULIN LISPRO 100 UNITS/ML SUBCUT SCH ×4 (05:48→21:00)
[2020-08-09 07:14] LABS: BASOPHILS % 0.8 % (0.0-2.0); EOSINOPHILS % 1.4 % (0.0-5.0); HEMOGLOBIN. 8.1 g/dL (14.0-18.0); MEAN CORPUSCULAR HEMOGLOBIN 27.7 pg (28.0-32.0); MEAN CORPUSCULAR VOLUME 86.1 fL (80.0-94.0); MEAN PLATELET VOLUME 7.6 fl (7.4-10.4); MONOCYTES % 9.5 % (2.0-8.0); NEUTROPHILS % 69.3 % (40.0-76.0); PLATELET 303 x1000/uL (130-400); RED BLOOD CELL COUNT 2.91 mill/uL (4.7-6.1)
[2020-08-09 07:18] LABS: CHLORIDE 108 mEq/L (98-107)
[2020-08-09 07:29] LABS: INR 1.2; PROTHROMBIN TIME 12.2 sec (9.6-11.0)
[2020-08-09 08:00] VITALS: BP 153/92
[2020-08-09] MEDS: ENOXAPARIN 60MG/0.6ML SYR SUBCUT SCH ×2 (09:00→21:00)
[2020-08-09] MEDS ORDERED: POTASSIUM CHLORIDE 20MEQ TABLET SR PO NR (10:00)
[2020-08-09] MEDS: LEVOFLOXACIN 250MG PREMIX 50 ML IV SCH (10:41)
[2020-08-09 12:00] VITALS: BP 134/54
[2020-08-09 13:47] LABS: TOTAL IRON BINDING CAPACITY 198 ug/dL (250-450)
[2020-08-09 14:08] LABS: FOLIC ACID (FOLATE) SERUM 8.7 ng/mL (>5.38)
[2020-08-09 16:00] VITALS: BP 134/51
[2020-08-09 20:00] VITALS: BP 144/66
[2020-08-10] VITALS: BP 125/51
[2020-08-10] MEDS: METRONIDAZOLE 500 MG PREMIX 100 ML IV SCH ×3 (00:07→18:17)
[2020-08-10 04:00] VITALS: BP 163/78
[2020-08-10] MEDS: ALBUTEROL (0.083%) 2.5MG/3ML NEB HHN PRN ×2 (04:14→16:49)
[2020-08-10] MEDS ORDERED: POTASSIUM CHLORIDE 20MEQ TABLET SR PO NR ×2 (05:30→20:00)
[2020-08-10] MEDS: BLOOD SUGAR DIAGNOSTIC STRIP TEST SCH ×4 (05:57→20:41)
[2020-08-10] MEDS: INSULIN LISPRO 100 UNITS/ML SUBCUT SCH ×4 (05:58→20:41)
[2020-08-10 08:00] VITALS: BP 132/63
[2020-08-10] MEDS: ENOXAPARIN 60MG/0.6ML SYR SUBCUT SCH ×2 (09:00→20:45)
[2020-08-10] MEDS: POTASSIUM CHLORIDE 20MEQ TABLET SR PO NR ×2 (09:28→10:07)
[2020-08-10] MEDS: LEVOFLOXACIN 250MG PREMIX 50 ML IV SCH (11:09)
[2020-08-10 12:00] VITALS: BP 128/50
[2020-08-10 13:12] LABS: ATYPICAL pANCA <1:20 titer (Neg:<1:20)
[2020-08-10 16:00] VITALS: BP 152/74
[2020-08-10 16:08] LABS: CHLORIDE 112 mEq/L (98-107)
[2020-08-10] MEDS: FERROUS SULFATE 325MG TABLET PO SCH (18:17)
[2020-08-10] MEDS: SODIUM CHLORIDE 0.9% 1,000 ML IV SCH (18:17)
[2020-08-10 20:00] VITALS: BP 141/67
[2020-08-11] VITALS: BP 136/78
[2020-08-11 04:00] VITALS: BP 152/76
[2020-08-11] MEDS: BLOOD SUGAR DIAGNOSTIC STRIP TEST SCH ×4 (05:56→21:18)
[2020-08-11] MEDS: INSULIN LISPRO 100 UNITS/ML SUBCUT SCH ×4 (05:56→21:00)
[2020-08-11] MEDS: FERROUS SULFATE 325MG TABLET PO SCH ×3 (07:15→16:50)
[2020-08-11 08:00] VITALS: BP 115/77
[2020-08-11] MEDS: ENOXAPARIN 60MG/0.6ML SYR SUBCUT SCH ×2 (09:12→21:00)
[2020-08-11 12:00] VITALS: BP 127/69
[2020-08-11 13:11] LABS: SACCHAROMYCES CEREVISIAE IGM 86.1 Units (0.0-24.9)
[2020-08-11] MEDS: SODIUM CHLORIDE 0.9% 1,000 ML IV SCH (14:34)
[2020-08-11 16:00] VITALS: BP 138/81
[2020-08-11 20:00] VITALS: BP 120/73
[2020-08-12] VITALS: BP 132/70
[2020-08-12 04:00] VITALS: BP 133/61
[2020-08-12] MEDS: BLOOD SUGAR DIAGNOSTIC STRIP TEST SCH ×4 (06:32→20:28)
[2020-08-12] MEDS: INSULIN LISPRO 100 UNITS/ML SUBCUT SCH ×4 (06:32→20:28)
[2020-08-12 08:00] VITALS: BP 148/68
[2020-08-12] MEDS: ENOXAPARIN 60MG/0.6ML SYR SUBCUT SCH (08:13)
[2020-08-12] MEDS: FERROUS SULFATE 325MG TABLET PO SCH ×3 (08:13→16:48)
[2020-08-12] MEDS: SODIUM CHLORIDE 0.9% 1,000 ML IV SCH (10:24)
[2020-08-12 11:11] LABS: BASOPHILS % 0.6 % (0.0-2.0); EOSINOPHILS % 0.3 % (0.0-5.0); HEMOGLOBIN. 7.7 g/dL (14.0-18.0); LYMPHOCYTES % 8.1 % (20.0-50.0); MEAN CORPUSCULAR HEMOGLOBIN 27.6 pg (28.0-32.0); MEAN CORPUSCULAR VOLUME 86.2 fL (80.0-94.0); MEAN PLATELET VOLUME 8.2 fl (7.4-10.4); MONOCYTES % 7.1 % (2.0-8.0); NEUTROPHILS % 83.9 % (40.0-76.0); PLATELET 52 x1000/uL (130-400); RED BLOOD CELL COUNT 2.78 mill/uL (4.7-6.1); RED CELL DISTRIBUTION WIDTH 16.4 % (11.6-14.6)
[2020-08-12 11:16] LABS: CHLORIDE 111 mEq/L (98-107)
[2020-08-12 11:27] LABS: CLARITY URINE TURBID (CLEAR); KETONES URINE TRACE (NEGATIVE); LEUKOCYTE ESTERASE URINE 3+ (NEGATIVE); NITRITE URINE NEGATIVE (NEGATIVE); OCCULT BLOOD URINE 3+ (NEGATIVE); PH URINE 5.5 (4.5-8.0); PROTEIN URINE 3+ (NEGATIVE); UROBILINOGEN URINE 0.2 E.U./dL (0.2-1.0)
[2020-08-12 11:30] LABS: COLOR URINE BLOODY (YELLOW)
[2020-08-12 12:00] VITALS: BP 124/58
[2020-08-12] MEDS ORDERED: POTASSIUM CHLORIDE INJ 40 MEQ in DEXT 5% WATER 250 ML IV NR (14:00)
[2020-08-12] MEDS ORDERED: LOPERAMIDE HCL 2MG CAPSULE PO SCH (15:15)
[2020-08-12 16:00] VITALS: BP 138/72
[2020-08-12] MEDS ORDERED: CEFTRIAXONE 1 G PREMIX 50 ML IV SCH (17:30)
[2020-08-12] MEDS: ALBUTEROL (0.083%) 2.5MG/3ML NEB HHN PRN (18:51)
[2020-08-12 20:00] VITALS: BP 131/68
[2020-08-12] MEDS ORDERED: LEVOFLOXACIN 500MG PREMIX 100 ML IV NR (20:00)
[2020-08-13] VITALS: BP 100/67
[2020-08-13 04:00] VITALS: BP 139/53
[2020-08-13 04:08] LABS: OVA & PARASITE EXAM Final report (.)
[2020-08-13] MEDS: INSULIN LISPRO 100 UNITS/ML SUBCUT SCH ×3 (05:43→17:15)
[2020-08-13] MEDS: BLOOD SUGAR DIAGNOSTIC STRIP TEST SCH ×3 (05:43→16:45)
[2020-08-13] MEDS: FERROUS SULFATE 325MG TABLET PO SCH ×3 (06:23→17:15)
[2020-08-13] MEDS: SODIUM CHLORIDE 0.9% 1,000 ML IV SCH (06:30)
[2020-08-13 08:00] VITALS: BP 149/62
[2020-08-13 12:00] VITALS: BP 100/58
[2020-08-13 15:34] LABS: BASOPHILS % 0.3 % (0.0-2.0); EOSINOPHILS % 1.3 % (0.0-5.0); HEMATOCRIT. 23.8 % (42.0-52.0); HEMOGLOBIN. 7.7 g/dL (14.0-18.0); LYMPHOCYTES % 11.4 % (20.0-50.0); MEAN CORPUSCULAR HEMOGLOBIN 27.7 pg (28.0-32.0); MEAN CORPUSCULAR VOLUME 85.8 fL (80.0-94.0); MEAN PLATELET VOLUME 7.6 fl (7.4-10.4); PLATELET 221 x1000/uL (130-400); RED BLOOD CELL COUNT 2.78 mill/uL (4.7-6.1)
[2020-08-13 16:00] VITALS: BP 104/59
[2020-08-13 16:27] VITALS: BP 104/59
[2020-08-13] MEDS ORDERED: LEVOFLOXACIN 250MG PREMIX 50 ML IV SCH (20:00)
== END 2020-08-13 21:06 | disposition home health service (06) | DRG 871 ==
LOC: ER 13:44 → 7EST 17:24 → EDBEDREQ 17:58 → ENRESERV 19:38 → CANRESERV 19:38 → ENRESERV 20:44 → 5WST 08-06 17:57
PROVIDERS: ADMIT Internal Medicine; ATTEND Internal Medicine
PROC: 02HV33Z Insertion of Infusion Device into Superior Vena Cava, Percutaneous Approach (ICD-10-PCS; principal; 2020-08-05)
PROC: B548ZZA Ultrasonography of Superior Vena Cava, Guidance (ICD-10-PCS; 2020-08-05)
DX: A41.9 Sepsis, unspecified organism (principal); J96.00 Acute respiratory failure, unspecified whether with hypoxia or hypercapnia; G92 Toxic encephalopathy; E43 Unspecified severe protein-calorie malnutrition; I82.413 Acute embolism and thrombosis of femoral vein, bilateral; J44.1 Chronic obstructive pulmonary disease with (acute) exacerbation; N39.0 Urinary tract infection, site not specified; N17.9 Acute kidney failure, unspecified; Z68.1 Body mass index [BMI] 19.9 or less, adult; C34.92 Malignant neoplasm of unspecified part of left bronchus or lung; E11.9 Type 2 diabetes mellitus without complications; I10 Essential (primary) hypertension; K52.9 Noninfective gastroenteritis and colitis, unspecified; K57.90 Diverticulosis of intestine, part unspecified, without perforation or abscess without bleeding; D64.9 Anemia, unspecified; E03.9 Hypothyroidism, unspecified; E83.39 Other disorders of phosphorus metabolism; E83.42 Hypomagnesemia; E87.6 Hypokalemia; F41.9 Anxiety disorder, unspecified; N40.0 Benign prostatic hyperplasia without lower urinary tract symptoms; T50.905A Adverse effect of unspecified drugs, medicaments and biological substances, initial encounter; L98.9 Disorder of the skin and subcutaneous tissue, unspecified; L29.1 Pruritus scroti; Z20.828 Contact with and (suspected) exposure to other viral communicable diseases; Z86.73 Personal history of transient ischemic attack (TIA), and cerebral infarction without residual deficits; Z87.891 Personal history of nicotine dependence; Z99.81 Dependence on supplemental oxygen; Z88.0 Allergy status to penicillin; Z79.899 Other long term (current) drug therapy; Y92.89 Other specified places as the place of occurrence of the external cause; R65.20 Severe sepsis without septic shock
CPT/HCPCS: 36415; 36573; 36600; 70551; 71045; 71250; 74176; 80048; 80053; 80061; 80305; 80320; 81003; 82140; 82270; 82375; 82550; 82553; 82607; 82728; 82746; 82805; 82962; 83540; 83550; 83605; 83735; 83880; 84100; 84443; 84484; 85025; 85044; 86256; 86671; 87015; 87045; 87106; 87177; 87209; 87427; 87449; 87493; 87635; 89055; 92610; 93005; 93970; 94640; 99285; A6261; C1725; J1200; J1650; J1815; J1956; J2930; J3370; J3475; J3480; J3490; J7060; A4315; G0480